=== PATIENT | female | born 1980 | race Caucasian/White ===

== ENCOUNTER 2020-01-06 17:15 | Emergency (ER) | payer OTHER ==
[2020-01-06 17:44] VITALS: BP 167/95; PULSE 97; TEMP 98.5; BMI 28.0
--- NOTE | 2020-01-06 17:45 | PDOC ---
Rapid Medical Evaluation Medical Evaluation: 01/06/20 17:41 39 yo F presents with pelvic pain and vaginal bleeding x 1 week s/[facility]. went to [facility] today, had transvaginal US and was sent to ED for a pelvic MRI to r/o perforation of IUD in uterus. patient has referral form from the physician. denies n/v/f/d/c, cp, sob. VSS tearful ambulatory A/P: pelvic pain labs cg ua
[2020-01-06] MEDS ORDERED: diazePAM 5 MG TABLET PO ONE (18:33)
--- NOTE | 2020-01-06 18:34 | PDOC ---
History of Present Illness - General Chief Complaint: Pain Stated Complaint: NEED M R I SENT BY DOCTOR Time Seen by Provider: 01/06/20 17:57 - History of Present Illness Initial Comments: 01/06/20 18:31 39 y/o F IUD placed 7 days ago now has increasing pelvic pain, sent to ER by [facility] to r/o perforation of uterus and R ovarian mass Past History - Medical History Allergies/Adverse Reactions: Allergies Allergy/AdvReac Type Severity Reaction Status Date / Time tetracycline Allergy Verified 01/06/20 17:43 Home Medications: Ambulatory Orders Sulfamethoxazole/Trimethoprim [Bactrim Ds -] 1 tab PO BID #14 tablet 01/06/20 COPD: No - Psycho-Social/Smoking History Smoking History: Never smoked Have you smoked in the past 12 months: No Information on smoking cessation initiated: No - Substance Abuse Hx (Audit-C & DAST Scrn) How often the patient has a drink containing alcohol: Never Score: In Men: 4 or > Positive; In Women: 3 or > Positive: 0 Screen Result (Pos requires Nsg. Audit-10AR): Negative In the last yr the pt used illegal drug/Rx for NonMed reason: No Score: Yes response is considered Positive: 0 Screen Result (Positive result requires Nsg. DAST-10): Negative Review of Systems - Review of Systems Able to Perform ROS?: Yes : Yes: See HPI, Frequency, Pain, Urgency. No: Incontinence *Physical Exam - Vital Signs Last Vital Signs Temp Pulse Resp BP Pulse Ox 98.5 F 97 H 18 167/95 100 01/06/20 17:39 01/06/20 17:39 01/06/20 17:39 01/06/20 17:39 01/06/20 17:39 - Physical Exam 01/06/20 22:34 GENERAL: The patient is awake, alert, and fully oriented, in no acute distress. HEAD: Normal with no signs of trauma. EYES: sclera anicteric, conjunctiva clear. ENT: Ears normal tympanic membranes normal oropharynx clear uvula midline NECK: Normal range of motion LUNGS: Breath sounds equal, clear to auscultation bilaterally. No wheezes, and no crackles. HEART: S1 and S2 without murmur, rub or gallop. ABDOMEN: Soft, nontender, normoactive bowel sounds. No guarding, no rebound. No masses. EXTREMITIES: Normal range of motion, no edema. No clubbing or cyanosis. No cords, erythema, or tenderness. NEUROLOGICAL: Cranial nerves II through XII grossly intact. PSYCH: Normal mood, normal affect. SKIN: Warm, Dry, normal turgor, no rashes or lesions noted. ED Treatment Course - LABORATORY CBC & Chemistry Diagram: 01/06/20 18:16 01/06/20 18:16 - RADIOLOGY Radiology Studies Ordered: Category Date Time Status PELVIS MRI WITHOUT CONTRAST [MRI] Stat MRI 01/06/20 18:29 Ordered Medical Decision Making - Medical Decision Making 01/06/20 22:33 Ultrasound shows IUD in place without uterine perforation. Significant urinary tract infection gram Rocephin given Bactrim given orally at home. Follow-up with [facility]. Discussed results with emergency room attending as well as patient. Patient to follow-up with [facility] in the next 1 to 2 days without fail. Patient does have a urinary symptoms as well. I have reviewed the pathophysiology with the patient. They are in agreement with the treatment plan all questions were answered to their satisfaction. Understanding for follow-up without fail was also conveyed to the patient. Again they are in agreement. 01/06/20 22:34 Pelvic examination was deferred because it was done in the office at the [facility] who sent the patient to the emergency room. Discharge - Discharge Information Problems reviewed: Yes Clinical Impression/Diagnosis: UTI (urinary tract infection) Condition: Stable Disposition: HOME - Admission No - Follow up/Referral Referrals: Esha Howe MD [Staff Physician] - - Patient Discharge Instructions Patient Printed Discharge Instructions: Urinary Tract Infection Additional Instructions: Please take the antibiotics as directed and return to the emergency room should symptoms worsen. Please follow-up with your [facility] in 1 to 2 days without fail for further evaluation and treatment options and for further evaluation of her uterine fibroids. - Post Discharge Activity
[2020-01-06 18:48] LABS: BASO % 0.6 % (0-2.0); HEMATOCRIT 39.7 % (32.4-45.2); HEMOGLOBIN 13.3 GM/dL (10.7-15.3); LYMPH % 21.2 % (8-40); MCH 31.8 pg (25.7-33.7); MCHC 33.5 g/dl (32.0-36.0); MEAN PLT VOLUME 8.1 fl (7.5-11.1); NEUT % 72.2 % (42.8-82.8); PLATELET COUNT 329 K/MM3 (134-434); RBC 4.17 M/mm3 (3.60-5.2); RDW 13.4 % (11.6-15.6); WHITE BLOOD COUNT 9.9 K/mm3 (4.0-10.0)
[2020-01-06 18:49] LABS: INR 0.96 (0.83-1.09); PROTHROMBIN TIME (PATIENT) 11.3 SEC (9.7-13.0)
[2020-01-06 18:51] LABS: ACTIVATED PTT 29.3 SECONDS (25.2-36.5)
[2020-01-06 18:54] LABS: HCG,QUALITATIVE URINE Negative
[2020-01-06] MEDS ORDERED: diazePAM 5 MG TABLET ONE (18:57)
[2020-01-06 19:16] LABS: EPI CELLS 1 /uL (0-25.1); HYALINE CASTS 1 /uL (0-3.1); PH,URINE 5.5 (5.0-8.0); URINE APPEARANCE CLOUDY; URINE BILIRUBIN NEGATIVE (NEGATIVE); URINE COLOR YELLOW; URINE GLUCOSE (UA) NEGATIVE (NEGATIVE); URINE KETONE NEGATIVE (NEGATIVE); URINE LEUK ESTERASE 2+ (NEGATIVE); URINE NITRITE NEGATIVE (NEGATIVE); URINE PROTEIN TRACE (NEGATIVE); URINE RBC 565 /uL (0-23.9); URINE UROBILINOGEN 0.2 mg/dL (0.2-1.0); URINE WBC 1124 /uL (0-25.8)
[2020-01-06 19:31] LABS: BILIRUBIN,TOTAL 0.3 mg/dL (0.2-1); BLOOD UREA NITROGEN 15.6 mg/dL (7-18); CREATININE 0.8 mg/dL (0.55-1.3); MAGNESIUM 2.4 mg/dL (1.8-2.4); POTASSIUM 3.9 mmol/L (3.5-5.1); TOT PROT 7.3 g/dl (6.4-8.2)
[2020-01-06] MEDS ORDERED: CEFTRIAXONE 1,000 MG in DEXTROSE 5%-WATER - 50 ML IVPB ONE (20:58)
[2020-01-06] MEDS ORDERED: CEFTRIAXONE 1 GM/50 ML BAG ONE (22:44)
== END 2020-01-06 23:35 | disposition home or self-care (01) ==
LOC: JER 17:15
DX: N39.0 Urinary tract infection, site not specified (principal)
CPT/HCPCS: 36415; 72195-TC; 76856-TC; 80053; 81003; 83735; 84703; 85025; 85610; 85730; 86850; 86900; 86901; 87086; 87186; 99285-25